=== PATIENT | male | born 1995 | race Hispanic/Latino ===

== ENCOUNTER 2021-12-01 21:03 | Emergency (ER) | payer SELFPAY ==
[2021-12-01] MEDS ORDERED: ONDANSETRON 4 MG/2 ML INJ IV ONE (21:04)
[2021-12-01] MEDS ORDERED: SODIUM CHLORIDE 0.9% 1000 ML 1,000 ML IV ONE (21:04)
[2021-12-01] MEDS ORDERED: MORPHINE 4 MG/1 ML INJ IV ONE (21:04)
[2021-12-01] MEDS ORDERED: ONDANSETRON 4 MG/2 ML INJ ONE (21:06)
[2021-12-01] MEDS ORDERED: ceFAZolin/NS 1 GM/50 ML 1 GM/50 ML BAG IV ONE ×2 (21:07→23:00)
[2021-12-01] MEDS ORDERED: MORPHINE 4 MG/1 ML INJ ONE (21:07)
[2021-12-01] MEDS ORDERED: SODIUM CHLORIDE 0.9% 1000 ML 1,000 ML ONE (21:07)
[2021-12-01] MEDS ORDERED: TETANUS,DIPHTHERIA TOXOID ADULT 0.5 ML INJ IM ONE (21:09)
[2021-12-01 21:29] LABS: Basophils % (Auto) 0.4 % (0.0-1.8); Eosinophils # (Auto) 0.2 K/mm3 (0.0-0.4); Eosinophils % (Auto) 1.9 % (0.0-4.3); Hematocrit 42.6 % (35.5-45.6); Hemoglobin 14.3 gm/dl (11.8-15.2); Lymphocytes # (Auto) 2.5 K/mm3 (1.2-5.4); Lymphocytes % (Auto) 27.1 % (13.4-35.0); Mean Corpuscular HGB Conc 34 % (32-34); Mean Corpuscular Volume 89 fl (84-94); Monocytes # (Auto) 1.2 K/mm3 (0.0-0.8); Platelet Count 199 K/mm3 (140-440); Red Blood Count 4.79 M/mm3 (3.65-5.03); Red Cell Distribution Width 12.9 % (13.2-15.2)
[2021-12-01 21:36] LABS: INR 0.87 (0.87-1.13)
[2021-12-01 21:47] LABS: Alanine Aminotransferase 20 units/L (7-56); Albumin 4.8 g/dL (3.9-5); BUN/Creatinine Ratio 12; Blood Urea Nitrogen 16 mg/dL (9-20); Calcium 9.9 mg/dL (8.4-10.2); Hemolysis Index 10
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
[2021-12-01] MEDS ORDERED: ETOMIDATE 20 MG/10 ML INJ IV ONE (22:52)
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
[2021-12-02] MEDS ORDERED: ETOMIDATE 20 MG/10 ML INJ IV ONE (00:10)
--- NOTE | 2021-12-02 00:47 | XRay Report ---
LEFT WRIST 2 VIEWS 0007 INDICATION: Post reduction COMPARISON: Left hand 12/01/20212126 FINDINGS: Views were obtained in a splint. Both views are obliqued. Distal radial impacted fracture i s again noted with moderate dorsal angulation. No dislocation is obvious. Mild dorsal and lateral dis placement are seen. LEFT ANKLE 2 VIEWS 0003 INDICATION: Post reduction COMPARISON: Left foot 12/01/20212121 FINDINGS: Views were obtained in a cast. Lateral malleolar base fracture is again seen with medial di splacement. Posterior malleolar fracture is less obvious. No dislocation is seen. Signer Name: Shamar Rich MD Signed: 12/02/2021 12:42 AM Workstation Name: [id number]
[2021-12-02 00:55] VITALS: BP 127/87
[2021-12-02] MEDS ORDERED: ceFAZolin/NS 1 GM/50 ML 1 GM/50 ML BAG IV ONE (01:00)
== END 2021-12-02 00:55 | disposition hospice, inpatient (51) ==
LOC: ED 21:03
DX: S52.592A Other fractures of lower end of left radius, initial encounter for closed fracture (principal); S82.52XB Displaced fracture of medial malleolus of left tibia, initial encounter for open fracture type I or II; S00.01XA Abrasion of scalp, initial encounter; R10.9 Unspecified abdominal pain; R07.89 Other chest pain; W18.39XA Other fall on same level, initial encounter; Y93.89 Activity, other specified; Y92.89 Other specified places as the place of occurrence of the external cause; Y99.8 Other external cause status
CPT/HCPCS: 25605; 27766; 36415; 71260; 73090; 73100; 73120; 73590; 73600; 73620; 74177; 80053; 82550; 84484; 85025; 85610; 90471; 90714; 93005; 96361; 96374; 96375; 99291; 99292; J2270; J2405; J3490; J7030; Q9967; 80320; G0480